=== PATIENT | male | born 1960 | race Native Hawaiian/Other Pacific Islander ===

== ENCOUNTER 2020-03-11 14:16 | Inpatient (IN) ==
--- OUTSIDE RECORDS SUMMARY | 2020-03-11 14:18 | External Medical Summary | Continuity of Care Document ---
:1960 Author Name Jono Burrows, Provider Address Unavailable Unavailable , Care Team Providers Name Role Phone Unavailable Unavailable Unavailable Raul Craven Unavailable Unavailable Unavailable Unavailable Unavailable Problems Vitamin D deficiency (268.9) (E55.9) Hypertension (401.9) (I10) Nephrolithiasis (592.0) (N20.0) Ureteral stone (592.1) (N20.1) Calculus of kidney (592.0) (N20.0) Allergies and Adverse Reactions No Known Drug Allergies (Allergy) Medications Lisinopril-hydroCHLOROthiazide 10-12.5 M G Oral Tablet; TAKE 1 TABLET DAILY at HS. , M.D. Quantity: 90 Refills: 3 Procedures Procedures not documented Immunizations Immunizations not documented Family History Brother Family history of prostate cancer (V16.42) (Z80.42) Status: Active Family history of kidney stones (V18.69) (Z84.1) Status: Act yen Mother Family history of hypertension (V17.49) (Z82.49) Status: Act yen Family history of diabetes mellitus (V18.0) (Z83.3) Status: Active Father Family history of hypertension (V17.49) (Z82.49) Status: Act yen Social History - Smoking Status Never smoked tobacco Plan of Treatment Planned Observations Planned Goals not documented Results No Known Results Results not documented
--- OUTSIDE RECORDS SUMMARY | 2020-03-11 14:19 | External Medical Summary | Continuity of Care Document ---
:1960 Author Name Jono Burrows, Provider Address Unavailable Unavailable , Care Team Providers Name Role Phone Unavailable Unavailable Unavailable Raul Craven Unavailable Unavailable Unavailable Unavailable Unavailable Problems Calculus of kidney (592.0) (N20.0) Ureteral stone (592.1) (N20.1) Nephrolithiasis (592.0) (N20.0) Hypertension (401.9) (I10) Vitamin D deficiency (268.9) (E55.9) Allergies and Adverse Reactions No Known Drug [...]
[2020-03-11] MEDS ORDERED: NITROGLYCERIN SL 0.4 MG/TAB TAB SL PRN (14:41)
[2020-03-11] MEDS ORDERED: ASPIRIN CHEW 324 MG PO STA (14:41)
--- NOTE | 2020-03-11 14:44 | Emergency Department Note ---
Impression & Plan Chest pain, HTN (hypertension), High serum chloride ED Provider Note NAME: LIT HO AGE: 59 SEX: M : 1960 ARRIVES VIA: Walk-In INFORMANT: Patient ED PROVIDER(S): Eric Sargent DO CHIEF COMPLAINT: chest pain HPI: Patient is a 59-year-old male who presents the ER for chest pain. Describes as a tightness in the middle of his chest. Has been present since Tuesday. He notes it is worse after eating but then improves within a couple seconds when he swallows something. Water does improve it with swallowing. He also notes that he has had exertional symptoms that have been worse over the past couple weeks. He also has exertional shortness of breath. Today he went up a hill and became significantly short of breath and started having chest pres sure. He did admit to some arm neck pain which is now resolved. His pain is very subtle at this point. He follows with Dr. Pride for known aneurysm. ROS: See above HPI for pertinent positives & negatives. A total of 10 systems reviewed and were otherwise negative. PAST MEDICAL HISTORY:See Below PAST SURGICAL HISTORY:See Below FAMILY HISTORY:See Below SOCIAL HISTORY:See Below HOME MEDICATIONS:See Below ALLERGIES:See Below VITALS:See Below PHYSICAL EXAMINATION: GENERAL: Sitting up in bed, alert, well appearing, well nourished, no distress, non-toxic EYE EXAM: normal conjunctiva. OROPHARYNX: no exudate, no erythema, lips, buccal mucosa, and tongue normal and mucous membranes are moist NECK: supple, no nuchal rigidity, no adenopathy, non-tender LUNGS: Clear to auscultation. Normal chest wall mechanics HEART: no murmurs, S1 normal and S2 normal ABDOMEN: abdomen soft, non-tender, normo-active bowel sounds, no masses, no rebound or guarding. BACK: Back is symmetrical on inspection and there is no deformity, no midline tenderness, no CVA tenderness. SKIN: no rashes and no bruising UPPER EXTREMITIES: upper extremities are grossly normal. Radial pulses are equal bilateral LOWER EXTREMITIES: No pitting edema. Calves are equal bilateral NEURO EXAM: Normal sensorium, cranial nerves II-XII grossly intact, normal speech, no gross weakness of arms, no gross weakness of legs. MEDICAL DECISION MAKING: Patient is a 59-year-old male who presents the ER for acute onset chest pain. 1 of which is exertional. Other appears to be GI in origin. IV was established blood work was obtained. Labs show no significant leukocytosis or anemia. INR was unremarkable. D-dimer was negative and a low risk patient. Will not pursue any further. BMP with slightly elevated chloride at 108. LFTs bilirubin was unremarkable. Troponin was detectable at 0.028. Lipase was normal. EKG showed no STEMI. Patient was given aspirin nitro. The exertional pain had resolved. He still had the pain with swallowing. He was updated bedside. Do not believe that this consistent with a dissection with his history, equl pulses and normal CXR. Will defer to hospitalist for further workup. With a detectable troponin and exertional chest pain component did discuss case with the hospitalist for further evaluation. Triage Nursing notes reviewed. Prior medical records reviewed Vital Signs: reviewed and remarkable for HTN Differential diagnosis: Differential diagnoses includes but is not limited to acute coronary syndrome, myocardial infarction, pericarditis, pulmonary embolus, aortic dissection, pneumonia, pneumothorax, musculoskeletal, shingles, esophageal. ER treatment provided: See below Diagnostics interpreted by me: ECG: Sinus rhythm rate of 66 Left axis No PVCs Normal QTC Cardiac Monitoring: An order was placed for continuous cardiac monitoring. The monitor shows a rate of 64 with sinus rhythm. Laboratory studies: As stated above and show below. Imaging studies: Portable AP upright 1 view of the chest shows no focal infiltrate or pneumothora x Consultation(s): Discussed with [facility] for further evaluation ED COURSE: Procedures: none Critical Care: None Past Med/Surg History Social History Smoking Status: Never smoker Feels Safe at Home: Yes Allergies Allergies Allergy/AdvReac Type Severity Reaction Status Date / Time acetaminophen [From Percocet] AdvReac Nausea Unverified 03/11/20 16:18 oxycodone [From Percocet] AdvReac Nausea Unverified 03/11/20 16:18 Home Meds Home Medications Medication Instructions Recorded Confirmed amlodipine 2.5 mg PO DAILY 03/11/20 03/11/20 budesonide 0.5 mg IRRIGATION DAILY 03/11/20 03/11/20 fluticasone propionate 1 spray INTRANASAL DAILY 03/11/20 03/11/20 gabapentin 300 mg PO BID 03/11/20 03/11/20 losartan 50 mg PO DAILY 03/11/20 03/11/20 modafinil 200 mg PO DAILY 03/11/20 03/11/20 Results & Data (ED) Vital Signs Vital Signs - 24 hr 03/11/20 14:25 03/11/20 14:45 03/11/20 15:08 Temperature 36.5 C Temperature Source Oral Oral Pulse Rate 62 Respiratory Rate 16 Blood Pressure 169/101 H Blood Pressure Mean 123 Pulse Oximetry 98 Oxygen Delivery Method Room Air Room Air Room Air Sepsis Recent Fever Within 48 Hours No Sepsis New/Unexplained Change in Mental Status N/A Sepsis Action Taken by Nursing No Action Required Laboratory Data Result diagrams: 03/11/20 14:58 03/11/20 14:58 Lab Results 03/11/20 03/11/20 03/11/20 Range/Units 14:58 14:58 14:58 WBC 6.43 (4.8-10.8) K/uL RBC 5.27 (4.7-6.1) M/uL Hgb 14.0 (14.0-18.0) g/dL Hct 42.8 (42-52) % MCV 81.2 (80-100) fL MCH 26.6 (25-34) pg MCHC 32.7 (32-36) g/dL RDW Std Deviation 41.0 (36.4-46.3) fL RDW Coeff of Clarence 13.8 (11.5-14.5) % Plt Count 155 (130-400) K/uL MPV 9.0 (7.4-10.4) fL Immature Gran % (Auto) 0.2 % Neut % (Auto) 57.5 % Lymph % (Auto) 31.6 % Mckean % (Auto) 9.3 % Eos % (Auto) 1.2 % Baso % (Auto) 0.2 % Neut # (Auto) 3.70 (1.4-6.5) K/uL Lymph # (Auto) 2.03 (1.2-3.4) K/uL Mckean # (Auto) 0.60 H (0.11-0.59) K/uL Eos # (Auto) 0.08 (0-0.5) K/uL Baso # (Auto) 0.01 (0-0.2) K/uL Immature Gran # (Auto) 0.01 (0.00-0.02) K/uL PT 11.4 (9.0-12.0) Seconds INR 1.1 (0.9-1.1) APTT 26.7 (21.0-31.0) Seconds PTT Ratio 1.0 D-Dimer 370 (0-500) ug/L FEU Sodium 140 (136-145) mmol/L Potassium 3.6 (3.5-5.1) mmol/L Chloride 108 H (98-107) mmol/L Carbon Dioxide 28 (21-32) mmol/L Anion Gap 4.0 (3-11) BUN 20 H (7-18) mg/dl Creatinine 1.21 (0.6-1.4) mg/dl Est Cr Clr Drug Dosing 69.8 ml/min Est GFR ( Amer) 76.6 Est GFR (Non-Af Amer) 66.1 BUN/Creatinine Ratio 16.2 (10-20) Glucose 100 H (70-99) mg/dl Calcium 9.0 (8.5-10.1) mg/dl Total Bilirubin 0.4 (0.2-1) mg/dl AST 25 (15-37) U/L ALT 40 (12-78) U/L Alkaline Phosphatase 104 (45-117) U/L Troponin I 0.028 (0-0.045) ng/ml Total Protein 7.1 (6.4-8.2) gm/dl Albumin 3.5 (3.4-5.0) gm/dl Globulin 3.6 (2.5-4.0) gm/dl Albumin/Globulin Ratio 1.0 (0.9-2) Lipase 130 (73-393) U/L Specimen Hemolysis Administered Medications Nitroglycerin (Nitroglycerin Sl 0.4 Mg/Tab Tab) 0.4 mg SL PRN PRN PRN Reason: Chest Pain Stop: 04/10/20 14:40 Last Admin: 03/11/20 14:57 Dose: 0.4 mg Documented by: [id number] Discontinued Medications Aspirin (Aspirin Chew 324 Mg) 324 mg PO NOW STA Stop: 03/11/20 14:42 Last Admin: 03/11/20 14:57 Dose: 324 mg Documented by: [id number] Discharge Plan Visit Data Chief Complaint: Chest Pain Stated Complaint: PRESSURE IN CHEST ED Provider: Eric Sargent Discharge Problem: Chest pain, HTN (hypertension), High serum chloride Forms Stand Alone Forms: [facility] Prescriptions Prescriptions: No Action modafinil 200 mg tablet 200 mg PO DAILY RF: 0 budesonide 0.5 mg/2 mL suspension for nebulization 0.5 mg irrigation DAILY RF: 0 fluticasone propionate 50 mcg/actuation spray,suspension 1 spray INTRANASAL DAILY RF: 0 gabapentin 300 mg capsule 300 mg PO BID RF: 0 losartan 50 mg tablet 50 mg PO DAILY RF: 0 amlodipine 2.5 mg tablet 2.5 mg PO DAILY RF: 0 Discharge Problem: Chest pain Qualifiers: Chest pain type: unspecified Qualified Code(s): R07.9 - Chest pain, unspecified HTN (hypertension) Qualifiers: Hypertension type: unspecified Qualified Code(s): I10 - Essential (primary) hypertension
--- NOTE | 2020-03-11 14:47 | XRay Report ---
XR chest 1V portable CLINICAL HISTORY: Chest Pain COMPARISON STUDY: Chest radiograph December 13, 2014. FINDINGS: Lung volumes are normal. Lungs are clear. There is no pneumothorax or pleural effusion. Car diac size is normal. Mediastinal contours are normal. There is no evidence for pulmonary edema. IMPRESSION: No acute cardiopulmonary findings. ACT 112: Negative or not required by law. Electronically signed by: Fortunato Marcum M.D. 03/11/2020 2:46 PM
[2020-03-11 15:10] LABS: Basophils # (auto) 0.01 K/uL (0-0.2); Basophils % (auto) 0.2 %; Eosinophils # (auto) 0.08 K/uL (0-0.5); Eosinophils % (auto) 1.2 %; Hematocrit (blood only) 42.8 % (42-52); Immature Granulocytes # (auto) 0.01 K/uL (0.00-0.02); Immature Granulocytes % (auto) 0.2 %; Lymphocytes # (auto) 2.03 K/uL (1.2-3.4); Lymphocytes % (auto) 31.6 %; Mean Corpuscular Hemoglobin 26.6 pg (25-34); Mean Corpuscular Hgb Conc 32.7 g/dL (32-36); Mean Corpuscular Volume 81.2 fL (80-100); Monocytes % (auto) 9.3 %; Neutrophils % (auto) 57.5 %; Platelet Count 155 K/uL (130-400); RDW Coefficient of Variation 13.8 % (11.5-14.5); Red Blood Count 5.27 M/uL (4.7-6.1); White Blood Count 6.43 K/uL (4.8-10.8)
[2020-03-11 15:33] LABS: D Dimer 370 ug/L FEU (0-500); INR 1.1 (0.9-1.1); Partial Thromboplastin Time 26.7 Seconds (21.0-31.0); Prothrombin Time 11.4 Seconds (9.0-12.0)
[2020-03-11 15:34] LABS: Albumin Level 3.5 gm/dl (3.4-5.0); BUN Creatinine Ratio 16.2 (10-20); Bilirubin,Total 0.4 mg/dl (0.2-1); Creatinine Clr Calc Pharmacy 69.8 ml/min; Est GFR (African American) 76.6; Est GFR (Non-African American) 66.1; Globulin 3.6 gm/dl (2.5-4.0); Potassium 3.6 mmol/L (3.5-5.1); Total Protein 7.1 gm/dl (6.4-8.2); Troponin I 0.028 ng/ml (0-0.045)
--- NOTE | 2020-03-11 16:08 | Electrocardiogram Report ---
Test Reason : Blood Pressure : / mmHG Vent. Rate : 066 BPM Atrial Rate : 066 BPM P-R Int : 152 ms QRS Dur : 088 ms QT Int : 432 ms P-R-T Axes : -17 -22 040 degrees QTc Int : 452 ms Normal sinus rhythm Moderate voltage criteria for LVH, may be normal variant Borderline ECG When compared with ECG of 13-DEC-2014 14:05, No significant change was found Confirmed by Omid Cho ([id number]) on 03/11/2020 4:08:19 PM Referred By: ER Confirmed By:Mele Cho
[2020-03-11] MEDS ORDERED: ONDANSETRON INJ 2 MG/ML 2 ML VIAL IV PRN (16:27)
--- NOTE | 2020-03-11 16:45 | History & Physical Report ---
Date of Service March 11, 2020 Assessment & Plan (1) Atypical chest pain: Presented with lower central/epigastric tightness since Tuesday last Pain seems to be more or less constant and has been annoying and is relieved to some extent by liquid Condition got worse with shortness of breath this morning Initial EKG and troponin were unremarkable We will get serial troponins and EKG We will get right-sided EKG to rule out ACS Stress echo tomorrow after ruling out for ACS Possible esophageal spasm/dysmotility Once ruled out will get a barium swallow Will give Protonix orally for now (2) HTN (hypertension): Has been on amlodipine 2.5 mg and losartan 50 mg daily daily Blood pressure remains high Will give losartan 50 mg stat and will increase the dose to 200 mg daily from tomorrow morning (3) Sleep apnea with use of continuous positive airway pressure (CPAP): Has been compliant with CPAP Can use his own CPAP in the hospital (4) Chronic back pain: Has been on gabapentin (5) Aortic aneurysm: Recent scan as an outpatient showed aneurysm to 4 cm Doubt any acute symptoms secondary to aneurysm DVT prophylaxis Subcu heparin CODE STATUS Full History of Present Illness Chief Complaint: Lower central chest/epigastric discomfort since Tuesday last Primary Care Provider: Vini Whitfield DO He is a 59-year-old obese male with significant past medical history of GRETA on CPAP at night, hypertension, history of lumbar degenerative disc disease with radiculopathy, history of aortic aneurysm and impaired glucose tolerance apparently has been complaining of lower central/epigastric discomfort which has been going on since Tuesday last. He feels tightness in the epigastric area which lasts almost all the time but gets better with the ingestion of fluid. He denies any chest pain associated with it and the symptoms does not go to his back. He has had shortness of breath with more of the symptoms ongoing of uphill this morning. He has been feeling better with the symptoms since Tuesday last and they consulted his home therapy clinician who advised him to come to the hospital. Has had some nausea but no vomiting and denies any problem with urine and her bowel h abit. No palpitation and no precordial pain. No headache and or blurred vision denies any numbness and or tingling involving any of the extremities. He was noted to have minimal swelling involving the both legs likely secondary to being on amlodipine. His EKG and initial troponin were unremarkable but given the atypical presentation he was admitted to telemetry unit for continuation of care. Allergies Allergy/AdvReac Type Severity Reaction Status Date / Time acetaminophen [From Percocet] AdvReac Nausea Unverified 03/11/20 16:18 oxycodone [From Percocet] AdvReac Nausea Unverified 03/11/20 16:18 Home Medications Home Medications Medication Instructions Recorded Confirmed Type amlodipine 2.5 mg PO DAILY 03/11/20 03/11/20 History budesonide 0.5 mg IRRIGATION DAILY 03/11/20 03/11/20 History fluticasone propionate 1 spray INTRANASAL DAILY 03/11/20 03/11/20 History gabapentin 300 mg PO BID 03/11/20 03/11/20 History losartan 50 mg PO DAILY 03/11/20 03/11/20 History modafinil 200 mg PO DAILY 03/11/20 03/11/20 History Past Med/Surg History Social History Smoking Status: Never smoker Feels Safe at Home: Yes Review of Systems Review of Systems: All systems reviewed & are unremarkable except as noted in HPI & below Physical Exam Physical Exam: Lying in bed comfortably Constitutional: well developed, well nourished, + ill appearing and + obese; no acute distress Eyes: PERRL, conjunctivae normal, anicteric sclerae ENMT: external ear and nose normal, oropharynx normal Neck: trachea midline, no thyromegaly Respiratory: no respiratory distress Auscultation: lungs clear to auscultation bilaterally Cardiovascular: Rate/Rhythm: regular rate and regular rhythm Heart Sounds: no murmur Extremities: + edema (1+ edema bilaterally) Gastrointestinal (Abdomen): Inspection/Auscultation: normal bowel sounds; abdomen not distended Percussion/Palpation: + abdomen tender (Minimally tender epigastrium) and abdomen soft Musculoskeletal: No acute arthritis in any joint Neurologic: PERRL, EOMI, accommodation nl, no face palsy, no dysarthria Psychiatric: A+Ox3, euthymic affect Lymphatic: no cervical or axillary lymphadenopathy Results & Data Results & Data ([facility]) Vital Signs (Past 12 Hours) Vital Signs Temp Pulse Resp BP Pulse Ox 03/11/20 14:25 36.5 C 62 16 169/101 H 98 Laboratory Results Short CBC 03/11/20 Range/Units 14:58 WBC 6.43 (4.8-10.8) K/uL Hgb 14.0 (14.0-18.0) g/dL Hct 42.8 (42-52) % Plt Count 155 (130-400) K/uL BMP 03/11/20 14:58 Sodium 140 Potassium 3.6 Chloride 108 H Carbon Dioxide 28 BUN 20 H Creatinine 1.21 Glucose 100 H Calcium 9.0 Cardiac Enzymes 03/11/20 Range/Units 14:58 Troponin I 0.028 (0-0.045) ng/ml Liver Function 03/11/20 Range/Units 14:58 Total Bilirubin 0.4 (0.2-1) mg/dl AST 25 (15-37) U/L ALT 40 (12-78) U/L Alkaline Phosphatase 104 (45-117) U/L Albumin 3.5 (3.4-5.0) gm/dl Medications Administered Current Inpatient Medications Nitroglycerin (Nitroglycerin Sl 0.4 Mg/Tab Tab) 0.4 mg SL PRN PRN PRN Reason: Chest Pain Stop: 04/10/20 14:40 Last Admin: 03/11/20 14:57 Dose: 0.4 mg Documented by: Ondansetron HCl (Ondansetron Inj 2 Mg/Ml 2 Ml Vial) 4 mg IV Q6H PRN PRN Reason: Nausea Stop: 04/10/20 16:26 Code Status & VTE Plan VTE Prophylaxis Plan VTE Prophylaxis will be ordered: Yes (1) HTN (hypertension) Hypertension type: unspecified Qualified Code(s): I10 - Essential (primary) hypertension
[2020-03-11] MEDS ORDERED: ALUMINUM/MAGNESIUM SUSP 30 ML UDC PO PRN (16:57)
[2020-03-11] MEDS ORDERED: LOSARTAN POTASSIUM 50 MG TAB PO ONE (18:15)
[2020-03-11] MEDS ORDERED: traMADol HCL 50 MG TABLET PO STA (20:17)
[2020-03-11] MEDS: GABAPENTIN 300 MG CAP PO SCH (22:26)
[2020-03-11] MEDS: HEPARIN SOD 5,000 UNIT/0.5 ML VIAL SQ SCH (22:26)
[2020-03-11] MEDS: PANTOprazole 40 MG TAB PO SCH (22:26)
[2020-03-12] MEDS ORDERED: KETOROLAC TROMETHAMINE 15 MG/ML VIAL IV ONE (01:47)
[2020-03-12 03:47] LABS: Basophils # (auto) 0.01 K/uL (0-0.2); Basophils % (auto) 0.1 %; Eosinophils # (auto) 0.13 K/uL (0-0.5); Eosinophils % (auto) 1.9 %; Hematocrit (blood only) 43.2 % (42-52); Hemoglobin 13.9 g/dL (14.0-18.0); Lymphocytes # (auto) 2.72 K/uL (1.2-3.4); Lymphocytes % (auto) 39.8 %; Mean Corpuscular Hemoglobin 26.3 pg (25-34); Mean Corpuscular Hgb Conc 32.2 g/dL (32-36); Mean Corpuscular Volume 81.7 fL (80-100); Mean Platelet Volume 9.1 fL (7.4-10.4); Monocytes % (auto) 10.2 %; Neutrophils # (auto) 3.28 K/uL (1.4-6.5); Platelet Count 151 K/uL (130-400); RDW Coefficient of Variation 13.9 % (11.5-14.5); RDW Standard Deviation 41.7 fL (36.4-46.3); Red Blood Count 5.29 M/uL (4.7-6.1); White Blood Count 6.84 K/uL (4.8-10.8)
[2020-03-12 04:13] LABS: BUN Creatinine Ratio 16.2 (10-20); Calcium 8.2 mg/dl (8.5-10.1); Creatinine Clr Calc Pharmacy 78.7 ml/min; Est GFR (African American) 89.9; Est GFR (Non-African American) 77.5; Potassium 3.6 mmol/L (3.5-5.1)
[2020-03-12] MEDS ORDERED: BUDESONIDE 0.5 MG/2 ML VIAL (PULMICORT) INH SCH (07:00)
[2020-03-12] MEDS: FLUTICASONE PROPIONATE NA SPR 16 GM BTL SCH (08:17)
[2020-03-12] MEDS: GABAPENTIN 300 MG CAP PO SCH ×2 (08:21→20:34)
[2020-03-12] MEDS: PANTOprazole 40 MG TAB PO SCH (08:21)
[2020-03-12] MEDS: HEPARIN SOD 5,000 UNIT/0.5 ML VIAL SQ SCH ×2 (08:21→20:35)
--- NOTE | 2020-03-12 08:40 | Hospitalist Progress Note ---
Date of Service March 12, 2020 Assessment & Plan (1) Atypical chest pain: Presented with lower central/epigastric tightness since Tuesday Pain seems to be on and off aggravated by eating, but especially with drinking fluids Report shortness of breath with walking uphill Condition got worse with shortness of breath morning of admission Contacted column precaster and was advised to report to Ed for further work-up Initial EKG and troponin were unremarkable Stress echo obtained - 03/12, unremarkable Cardiology consulted - given negative ischemic work-up recommend GI eval and poss. EGD Possible esophageal spasm/dysmotility Protonix orally for now NPO after MN EGD planned for tomorrow 03/13/20 (2) HTN (hypertension): Continue amlodipine 2.5 mg and losartan 50 mg daily daily (3) Sleep apnea with use of continuous positive airway pressure (CPAP): Has been compliant with CPAP Can use his own CPAP in the hospital (4) Chronic back pain: Has been on gabapentin (5) Aortic aneurysm: Recent scan as an outpatient showed aneurysm to 4 cm Doubt any acute symptoms secondary to aneurysm DVT prophylaxis: Subcu heparin CODE STATUS: Full Admission and Anticipated Discharge Date Admission Date: March 11, 2020 Subjective Sitting up in bed in NAD. Underwent stress test with cardiology which was unremarkable. Plan for EGD tomorrow. Currently denies any fever, chills, shortness of breath. On and off chest discomfort especially with eating and drinking. Review of Systems Review of Systems: All systems reviewed & are unremarkable except as noted in HPI & below Constitutional: no fever and no chills Respiratory: no cough and no dyspnea Cardiovascular: + chest pain (on and off w/ eating) Gastrointestinal: no nausea and no vomiting Physical Exam Physical Exam: Physical Exam: Sitting up in bed comfortably Constitutional: well developed, well nourished, + ill appearing and + obese; no acute distress Eyes: PERRL, EOMI, conjunctivae normal, anicteric sclerae ENMT: external ear and nose normal, oropharynx normal Neck: trachea midline, no thyromegaly Respiratory: no respiratory distress Auscultation: lungs clear to auscultation bilaterally Cardiovascular: Rate/Rhythm: regular rate and regular rhythm Heart Sounds: no murmur Extremities: + trace LE edema bilaterally Gastrointestinal (Abdomen): Inspection/Auscultation: normal bowel sounds; abdomen not distended Percussion/Palpation: + abdomen tender (Minimally tender epigastrium) and abdomen soft Musculoskeletal: No acute arthritis in any joint Neurologic: PERRL, EOMI, no face palsy, no dysarthria Psychiatric: A+Ox3, euthymic affect Results & Data Results & Data ([facility]) Vital Signs (Past 12 Hours) Vital Signs Temp Pulse Resp BP Pulse Ox 03/12/20 07:03 36.3 C L 58 L 18 153/93 H 97 03/12/20 03:51 36.6 C 63 16 154/93 H 98 03/12/20 00:00 36.7 C 63 17 165/93 H 97 Laboratory Results 03/12/20 03/12/20 03/12/20 Range/Units 03:05 03:05 03:05 WBC 6.84 (4.8-10.8) K/uL RBC 5.29 (4.7-6.1) M/uL Hgb 13.9 L (14.0-18.0) g/dL Hct 43.2 (42-52) % MCV 81.7 (80-100) fL MCH 26.3 (25-34) pg MCHC 32.2 (32-36) g/dL RDW Std Deviation 41.7 (36.4-46.3) fL RDW Coeff of Clarence 13.9 (11.5-14.5) % Plt Count 151 (130-400) K/uL MPV 9.1 (7.4-10.4) fL Immature Gran % (Auto) 0.0 % Neut % (Auto) 48.0 % Lymph % (Auto) 39.8 % [place] % (Auto) 10.2 % Eos % (Auto) 1.9 % Baso % (Auto) 0.1 % Neut # (Auto) 3.28 (1.4-6.5) K/uL Lymph # (Auto) 2.72 (1.2-3.4) K/uL [place] # (Auto) 0.70 H (0.11-0.59) K/uL Eos # (Auto) 0.13 (0-0.5) K/uL Baso # (Auto) 0.01 (0-0.2) K/uL Immature Gran # (Auto) 0.00 (0.00-0.02) K/uL PT (9.0-12.0) Seconds INR (0.9-1.1) APTT (21.0-31.0) Seconds PTT Ratio D-Dimer (0-500) ug/L FEU Sodium 140 (136-145) mmol/L Potassium 3.6 (3.5-5.1) mmol/L Chloride 109 H (98-107) mmol/L Carbon Dioxide 27 (21-32) mmol/L Anion Gap 4.0 (3-11) BUN 17 (7-18) mg/dl Creatinine 1.06 (0.6-1.4) mg/dl Est Cr Clr Drug Dosing 78.7 ml/min Est GFR ( Amer) 89.9 Est GFR (Non-Af Amer) 77.5 BUN/Creatinine Ratio 16.2 (10-20) Glucose 89 (70-99) mg/dl Calcium 8.2 L (8.5-10.1) mg/dl Magnesium 2.0 (1.8-2.4) mg/dl Total Bilirubin (0.2-1) mg/dl AST (15-37) U/L ALT (12-78) U/L Alkaline Phosphatase (45-117) U/L Troponin I (0-0.045) ng/ml Total Protein (6.4-8.2) gm/dl Albumin (3.4-5.0) gm/dl Globulin (2.5-4.0) gm/dl Albumin/Globulin Ratio (0.9-2) Lipase (73-393) U/L Specimen Hemolysis Hepatitis C Ab Screen Neg (Neg) 03/12/20 03/11/20 03/11/20 Range/Units 03:05 21:03 14:58 WBC (4.8-10.8) K/uL RBC (4.7-6.1) M/uL Hgb (14.0-18.0) g/dL Hct (42-52) % MCV (80-100) fL MCH (25-34) pg MCHC (32-36) g/dL RDW Std Deviation (36.4-46.3) fL RDW Coeff of Clarence (11.5-14.5) % Plt Count (130-400) K/uL MPV (7.4-10.4) fL Immature Gran % (Auto) % Neut % (Auto) % Lymph % (Auto) % [place] % (Auto) % Eos % (Auto) % Baso % (Auto) % Neut # (Auto) (1.4-6.5) K/uL Lymph # (Auto) (1.2-3.4) K/uL [place] # (Auto) (0.11-0.59) K/uL Eos # (Auto) (0-0.5) K/uL Baso # (Auto) (0-0.2) K/uL Immature Gran # (Auto) (0.00-0.02) K/uL PT (9.0-12.0) Seconds INR (0.9-1.1) APTT (21.0-31.0) Seconds PTT Ratio D-Dimer (0-500) ug/L FEU Sodium 140 (136-145) mmol/L Potassium 3.6 (3.5-5.1) mmol/L Chloride 108 H (98-107) mmol/L Carbon Dioxide 28 (21-32) mmol/L Anion Gap 4.0 (3-11) BUN 20 H (7-18) mg/dl Creatinine 1.21 (0.6-1.4) mg/dl Est Cr Clr Drug Dosing 69.8 ml/min Est GFR ( Amer) 76.6 Est GFR (Non-Af Amer) 66.1 BUN/Creatinine Ratio 16.2 (10-20) Glucose 100 H (70-99) mg/dl Calcium 9.0 (8.5-10.1) mg/dl Magnesium (1.8-2.4) mg/dl Total Bilirubin 0.4 (0.2-1) mg/dl AST 25 (15-37) U/L ALT 40 (12-78) U/L Alkaline Phosphatase 104 (45-117) U/L Troponin I 0.027 0.028 0.028 (0-0.045) ng/ml Total Protein 7.1 (6.4-8.2) gm/dl Albumin 3.5 (3.4-5.0) gm/dl Globulin 3.6 (2.5-4.0) gm/dl Albumin/Globulin Ratio 1.0 (0.9-2) Lipase 130 (73-393) U/L Specimen Hemolysis Hepatitis C Ab Screen (Neg) 03/11/20 03/11/20 Range/Units 14:58 14:58 WBC 6.43 (4.8-10.8) K/uL RBC 5.27 (4.7-6.1) M/uL Hgb 14.0 (14.0-18.0) g/dL Hct 42.8 (42-52) % MCV 81.2 (80-100) fL MCH 26.6 (25-34) pg MCHC 32.7 (32-36) g/dL RDW Std Deviation 41.0 (36.4-46.3) fL RDW Coeff of Clarence 13.8 (11.5-14.5) % Plt Count 155 (130-400) K/uL MPV 9.0 (7.4-10.4) fL Immature Gran % (Auto) 0.2 % Neut % (Auto) 57.5 % Lymph % (Auto) 31.6 % [place] % (Auto) 9.3 % Eos % (Auto) 1.2 % Baso % (Auto) 0.2 % Neut # (Auto) 3.70 (1.4-6.5) K/uL Lymph # (Auto) 2.03 (1.2-3.4) K/uL [place] # (Auto) 0.60 H (0.11-0.59) K/uL Eos # (Auto) 0.08 (0-0.5) K/uL Baso # (Auto) 0.01 (0-0.2) K/uL Immature Gran # (Auto) 0.01 (0.00-0.02) K/uL PT 11.4 (9.0-12.0) Seconds INR 1.1 (0.9-1.1) APTT 26.7 (21.0-31.0) Seconds PTT Ratio 1.0 D-Dimer 370 (0-500) ug/L FEU Sodium (136-145) mmol/L Potassium (3.5-5.1) mmol/L Chloride (98-107) mmol/L Carbon Dioxide (21-32) mmol/L Anion Gap (3-11) BUN (7-18) mg/dl Creatinine (0.6-1.4) mg/dl Est Cr Clr Drug Dosing ml/min Est GFR ( Amer) Est GFR (Non-Af Amer) BUN/Creatinine Ratio (10-20) Glucose (70-99) mg/dl Calcium (8.5-10.1) mg/dl Magnesium (1.8-2.4) mg/dl Total Bilirubin (0.2-1) mg/dl AST (15-37) U/L ALT (12-78) U/L Alkaline Phosphatase (45-117) U/L Troponin I (0-0.045) ng/ml Total Protein (6.4-8.2) gm/dl Albumin (3.4-5.0) gm/dl Globulin (2.5-4.0) gm/dl Albumin/Globulin Ratio (0.9-2) Lipase (73-393) U/L Specimen Hemolysis Hepatitis C Ab Screen (Neg) Medications Administered Current Inpatient Medications Al Hydrox/Mg Hydrox/Simethicone (Aluminum/Magnesium Susp 30 Ml Udc) 15 ml PO Q6H PRN PRN Reason: Dyspepsia Stop: 04/10/20 16:56 Amlodipine Besylate (Amlodipine Besylate 5 Mg Tab) 2.5 mg PO DAILY LORIE Stop: 04/11/20 08:59 Last Admin: 03/12/20 08:18 Dose: Not Given Documented by: Fluticasone Propionate (Fluticasone Propionate Na Spr 16 Gm Btl) 1 sprays NA DAILY LORIE Stop: 04/11/20 08:59 Last Admin: 03/12/20 08:17 Dose: Not Given Documented by: Gabapentin (Gabapentin 300 Mg Cap) 300 mg PO BID LORIE Stop: 04/10/20 20:59 Last Admin: 03/12/20 08:21 Dose: 300 mg Documented by: Heparin Sodium (Porcine) (Heparin Sod 5,000 Unit/0.5 Ml Vial) 5,000 units SQ Q12 LORIE Stop: 04/10/20 20:59 Last Admin: 03/12/20 08:21 Dose: 5,000 units Documented by: Losartan Potassium (Losartan Potassium 50 Mg Tab) 50 mg PO DAILY LORIE Stop: 04/11/20 08:59 Last Admin: 03/12/20 08:16 Dose: Not Given Documented by: Modafinil (Modafinil 100 Mg Tab) 200 mg PO DAILY LORIE Stop: 04/11/20 08:59 Last Admin: 03/12/20 08:33 Dose: 200 mg Documented by: Nitroglycerin (Nitroglycerin Sl 0.4 Mg/Tab Tab) 0.4 mg SL PRN PRN PRN Reason: Chest Pain Stop: 04/10/20 14:40 Last Admin: 03/11/20 14:57 Dose: 0.4 mg Documented by: Ondansetron HCl (Ondansetron Inj 2 Mg/Ml 2 Ml Vial) 4 mg IV Q6H PRN PRN Reason: Nausea Stop: 04/10/20 16:26 Pantoprazole Sodium (Pantoprazole 40 Mg Tab) 40 mg PO DAILY LORIE Stop: 04/10/20 16:59 Last Admin: 03/12/20 08:21 Dose: 40 mg Documented by: (1) HTN (hypertension) Hypertension type: unspecified Qualified Code(s): I10 - Essential (primary) hypertension
[2020-03-12] MEDS ORDERED: LOSARTAN POTASSIUM 50 MG TAB PO SCH (09:00)
[2020-03-12] MEDS ORDERED: amLODIPine BESYLATE 5 MG TAB PO SCH (09:00)
[2020-03-12] MEDS ORDERED: modafiniL 100 MG TAB PO SCH (09:00)
--- NOTE | 2020-03-12 09:55 | Cardiology Consultation ---
Date of Consultation March 12, 2020 Assessment & Plan (1) Chest pain: (2) Aortic aneurysm: (3) Chronic back pain: (4) Sleep apnea with use of continuous positive airway pressure (CPAP): (5) HTN (hypertension): Given the fact that his ischemic work-up has been negative to this point the patient underwent an exercise stress echocardiogram that was negative for any inducible ischemia. He did have some chest wall discomfort with exertion but states that he feels that he is out of shape and has not exercised for quite some time. Given the fact that his ischemic work-up is unremarkable I will consult our GI colleagues for likely upper endoscopy to evaluate for esophageal strictures or significant GERD. Should remain n.p.o. until seen by GI today. No other cardiac changes at this time. Okay to DC telemetry from a cardiac standpoint. History of Present Illness Reason for Consultation: Chest pain Requesting Physician: Richard Attending Physician: Hudson Ramos MD History of Present Illness It was my pleasure to see Mr. Preston in consultation today March 12, 2020. He is a very pleasant 59-year-old gentleman who follows with Dr. Pride of our cardiology practice for his history of aortic enlargement and hypertension. He presented to [facility] emergency department on 03/11/2020 at the urging of our office after he called with concerns of chest discomfort. He states that on March 09 he started noticing some midsternal discomfort. He states that it was constant but worse with drinking any liquids. He did notice a difference with solid foods. This discomfort waxed and waned for the next several days until his noticed him in discomfort and she recommend he contact our office. He was directed to the emergency department where his initial evaluation was unremarkable. He was admitted to telemetry overnight and cardiac enzymes remained unremarkable. His discomfort seemed to wax and wane throughout the night. He denies any previous similar episodes. Past medical history: 1.Moderate aortic root and ascending aortic enlargement. 2.Hypertension. 3.Low HDL dyslipidemia. 4.Familial history of heart disease. 5.History of past atypical chest discomfort. 6.Obstructive sleep apnea with hypersomnia using CPAP 7. Strong family history of esophageal strictures Allergies Allergy/AdvReac Type Severity Reaction Status Date / Time acetaminophen [From Percocet] AdvReac Nausea Unverified 03/11/20 16:18 oxycodone [From Percocet] AdvReac Nausea Unverified 03/11/20 16:18 Home Medications Home Medications Medication Instructions Recorded Confirmed Type amlodipine 2.5 mg PO DAILY 03/11/20 03/11/20 History budesonide 0.5 mg IRRIGATION DAILY 03/11/20 03/11/20 History fluticasone propionate 1 spray INTRANASAL DAILY 03/11/20 03/11/20 History gabapentin 300 mg PO BID 03/11/20 03/11/20 History losartan 50 mg PO DAILY 03/11/20 03/11/20 History modafinil 200 mg PO DAILY 03/11/20 03/11/20 History Patient History Social History Smoking Status: Never smoker Hx Alcohol Use: No Hx Substance Use: No Preferred Language: Japanese Communication Ability: Effective 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 No acute distress. HEENT: Normocephalic, atraumatic. Pupils equal, round and reactive to light and accommodation. Extraocular muscles are intact. Anicteric sclera. Moist mucous membranes. Neck: No JVD. No bruit. Cardiovascular: Regular. Positive S-4. Normal S-1 and S-2. No S-3. No murmurs or rubs. Pulmonary: Clear to auscultation B/L. No rales, rhonchi or wheezing Abdomen: Bowel sounds x 4, soft. No rebound, guarding or tenderness. No organomegaly. Extremities: No clubbing, cyanosis or edema. +2 pedal pulses bilaterally. Skin: Warm and dry. Results & Data ([facility]) Vital Signs (Past 12 Hours) Vital Signs Temp Pulse Resp BP Pulse Ox 03/12/20 07:03 36.3 C L 58 L 18 153/93 H 97 03/12/20 03:51 36.6 C 63 16 154/93 H 98 03/12/20 00:00 36.7 C 63 17 165/93 H 97 (1) Chest pain Chest pain type: unspecified Qualified Code(s): R07.9 - Chest pain, unspecified (2) HTN (hypertension) Hypertension type: unspecified Qualified Code(s): I10 - Essential (primary) hypertension
--- NOTE | 2020-03-12 10:13 | Gastrointestinal Consultation ---
Date of Consultation March 12, 2020 Assessment & Plan (1) Non-cardiac chest pain: Patient is already eaten today, so we are unable to do EGD today. Given option of outpatient EGD. However patient feels strongly that he would like to have an EGD prior to discharge. We will plan for EGD tomorrow. Please keep him n.p.o. after midnight tonight. Further recommendations to follow endoscopy. Present on Admission?: Yes Supervising Physician Co-Signing Physician Notes I have personally seen and examined the patient with LEX Herzog. Her note reflects my exam and findings. I agree with her impression and plan. Will arrange EGD for atypical chest pain. Miquel Chairez M.D. History of Present Illness Reason for Consultation: Esophageal dysmotility Requesting Physician: Dr. Stuart Muse Attending Physician: Hudson Ramos MD History of Present Illness Mr. Joshua Preston is a 59 yr old male pt of Dr. Whitfield with a hx of HTN, O SA, Lumbar DDD, aortic aneurysm and impaired glucose tolerance presented to [facility] on 03/10 for chest pain. Cardiology has consulted GI up for esophageal dysmotility. The patient tells me that he does not have typical symptoms of GERD and definitely has not had an ongoing problem with GERD. On Tuesday he began to feel a knifelike pain from inside the chest, pointing to the lower sternum when he describes this. The pain was was so severe that it woke him from sleep early on Tuesday morning. Because he was concerned that this could be a cardiac issue in light of a strong family history of heart disease he contacted cardiology who recommended presentation to the hospital. The pain has persisted, worse when he drinks any liquids. Even between swallowing, feels like he has a "ball" in that area. He denies any black or red bowel movements. No nausea or vomiting. He typically passes 2-3 formed bowel movements per day but has only had one bowel movement yesterday and none yet todays thus he is concerned about this change in bowel habits. On arrival CXR normal. See cardiology note - negative cardiac work up, thus GERD, strictures or esophageal dysmotility are considered possible causes of his pain. He has never previously undergone EGD. Allergies Allergy/AdvReac Type Severity Reaction Status Date / Time acetaminophen [From Percocet] AdvReac Nausea Unverified 03/11/20 16:18 oxycodone [From Percocet] AdvReac Nausea Unverified 03/11/20 16:18 Home Medications Home Medications Medication Instructions Recorded Confirmed Type amlodipine 2.5 mg PO DAILY 03/11/20 03/11/20 History budesonide 0.5 mg IRRIGATION DAILY 03/11/20 03/11/20 History fluticasone propionate 1 spray INTRANASAL DAILY 03/11/20 03/11/20 History gabapentin 300 mg PO BID 03/11/20 03/11/20 History losartan 50 mg PO DAILY 03/11/20 03/11/20 History modafinil 200 mg PO DAILY 03/11/20 03/11/20 History Patient History Social History Smoking Status: Never smoker Hx Alcohol Use: No Hx Substance Use: No Preferred Language: Icelandic Communication Ability: Effective 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 New chest pain with swallowing, see HPI. GI: See HPI. No abdominal pain, no nausea/vomiting or blood in stools. : Denies pain on urination Skin: No jaundice, itching or new rashes Physical Exam Constitutional: WD/WN, vitals as above cooperative, comfortable and + overweight Able to carry on a conversation. He is sitting in a chair at the bedside, reading. Eyes: PERRL, conjunctivae normal, anicteric sclerae ENMT: external ear and nose normal, oropharynx normal Neck: trachea midline, no thyromegaly Respiratory: normal respiratory effort, lungs clear to auscultation Cardiovascular: RRR, no murmur, no edema Gastrointestinal (Abdomen): normal bowel sounds, soft, nontender, no hepatosplenomegaly Skin: no rashes, warm and dry Neurologic: PERRL, EOMI, accommodation nl, no face palsy, no dysarthria Psychiatric: A+Ox3, euthymic affect Lymphatic: no cervical or axillary lymphadenopathy Results & Data ([facility]) Vital Signs (Past 12 Hours) Vital Signs Temp Pulse Resp BP Pulse Ox 03/12/20 07:03 36.3 C L 58 L 18 153/93 H 97 03/12/20 03:51 36.6 C 63 16 154/93 H 98 03/12/20 00:00 36.7 C 63 17 165/93 H 97 Laboratory Results WBC 6.8, Hb 13.9, Hct 43.2, Plts 151. INR 3.6, D Dimer (-), Na 140, 3.6, BN 17, Cr 1.06. LFTs and lipase normal. Diagnostic Findings CXR 03/11/20: normal
[2020-03-12] MEDS ORDERED: bisacodyL 5 MG TABEC PO ONE (12:16)
[2020-03-12] MEDS ORDERED: Nursing to Pharmacy Communication SCH (13:15)
--- NOTE | 2020-03-12 14:15 | Electrocardiogram Report ---
Test Reason : Blood Pressure : / mmHG Vent. Rate : 050 BPM Atrial Rate : 050 BPM P-R Int : 154 ms QRS Dur : 086 ms QT Int : 470 ms P-R-T Axes : 010 -22 066 degrees QTc Int : 428 ms Sinus bradycardia Voltage criteria for left ventricular hypertrophy Nonspecific T wave abnormality Abnormal ECG When compared with ECG of 11-MAR-2020 14:21, No significant change was found Confirmed by Omid Cho ([id number]) on 03/12/2020 2:14:43 PM Referred By: REFERRED SELF Confirmed By:Mele Cho
--- NOTE | 2020-03-12 14:21 | Electrocardiogram Report ---
Test Reason : Blood Pressure : / mmHG Vent. Rate : 054 BPM Atrial Rate : 054 BPM P-R Int : 164 ms QRS Dur : 086 ms QT Int : 460 ms P-R-T Axes : 010 -14 014 degrees QTc Int : 436 ms Sinus bradycardia Minimal voltage criteria for LVH, may be normal variant Abnormal ECG When compared with ECG of 11-MAR-2020 17:07, (unconfirmed) Nonspecific T wave abnormality now evident in Inferior leads Nonspecific T wave abnormality has replaced inverted T waves in Lateral leads Confirmed by Omid Cho ([id number]) on 03/12/2020 2:21:12 PM Referred By: REFERRED SELF Confirmed By:Mele Cho
[2020-03-12] MEDS: POLYETHYLENE (MIRALAX) 17 GM PACK PO SCH (17:27)
[2020-03-12] MEDS: amLODIPine BESYLATE 5 MG TAB PO SCH (20:33)
[2020-03-12] MEDS: LOSARTAN POTASSIUM 50 MG TAB PO SCH (20:34)
[2020-03-13 05:33] LABS: Hematocrit (blood only) 42.7 % (42-52); Hemoglobin 13.7 g/dL (14.0-18.0); Mean Corpuscular Hemoglobin 26.3 pg (25-34); Mean Corpuscular Hgb Conc 32.1 g/dL (32-36); Mean Corpuscular Volume 82.1 fL (80-100); Mean Platelet Volume 9.5 fL (7.4-10.4); Platelet Count 156 K/uL (130-400); RDW Coefficient of Variation 13.9 % (11.5-14.5); White Blood Count 6.03 K/uL (4.8-10.8)
[2020-03-13 06:03] LABS: Albumin Level 3.2 gm/dl (3.4-5.0); BUN Creatinine Ratio 15.5 (10-20); Calcium 8.3 mg/dl (8.5-10.1); Creatinine Clr Calc Pharmacy 71.9 ml/min; Est GFR (African American) 80.6; Est GFR (Non-African American) 69.5; Magnesium 2.1 mg/dl (1.8-2.4); Potassium 3.8 mmol/L (3.5-5.1)
[2020-03-13 06:06] LABS: Albumin Globulin Ratio 0.9 (0.9-2); Bilirubin,Total 0.8 mg/dl (0.2-1); Globulin 3.4 gm/dl (2.5-4.0); Phosphorus 2.2 mg/dl (2.5-4.9); Total Protein 6.6 gm/dl (6.4-8.2)
[2020-03-13] MEDS: POLYETHYLENE (MIRALAX) 17 GM PACK PO SCH (07:58)
[2020-03-13] MEDS: FLUTICASONE PROPIONATE NA SPR 16 GM BTL SCH (07:59)
--- NOTE | 2020-03-13 08:25 | Gastroenterology Progress Note ---
Date of Service March 13, 2020 Assessment & Plan (1) Non-cardiac chest pain: EGD today. Further recommendations to follow. Admission and Anticipated Discharge Date Admission Date: March 12, 2020 Supervising Physician Co-Signing Physician Notes I saw and evaluated the patient. We are planning for upper endoscopy today to evaluate the patient's history of difficulty swallowing and chest pain. We discussed the risks of the procedures to include bleeding, infection, perforation and need for follow-up exams Subjective 59 yr old male with hx of HTN, Sleep apnea on CPAP, aortic aneurysm. Admitted on 03/11 for lower retrosternal CP, described as sharp, "knife like from inside," hurts worse with swallowing liquids. Present since Tuesday morning (4 days). Cardiac testing (-) GI consult from cardiology requesting evaluation. No hx of prior GERD. Not on acid reducers. Not taking NSAIDs. No antiplatelet or anticoagulants. No prior EGDs. This morning, awake, alert, oriented, VS normal, Labs w/o anemia or electrolyte disturbances. Review of Systems Review of Systems: ROS: Gen: Denies weakness, fevers, weight loss Eyes: No eye redness, or pain, no recent vision changes Resp: No SOB, no cough Cardio: low grade lower chest discomfort at baseline "bubble," painful with swallows. GI: See HPI. No abdominal pain, no nausea/vomiting or blood in stools. : Denies pain on urination Skin: No jaundice, itching or new rashes Physical Exam Constitutional: WD/WN, vitals as above cooperative, comfortable and + overweight Eyes: PERRL, conjunctivae normal, anicteric sclerae ENMT: external ear and nose normal, oropharynx normal Neck: trachea midline, no thyromegaly Respiratory: normal respiratory effort, lungs clear to auscultation Cardiovascular: RRR, no murmur, no edema Gastrointestinal (Abdomen): normal bowel sounds, soft, nontender, no hepatosplenomegaly Skin: no rashes, warm and dry Neurologic: PERRL, EOMI, accommodation nl, no face palsy, no dysarthria Psychiatric: A+Ox3, euthymic affect Lymphatic: no cervical or axillary lymphadenopathy Results & Data ([facility]) Vital Signs (Past 12 Hours) Vital Signs Temp Pulse Pulse Resp BP Pulse Ox 03/13/20 07:33 37 C 62 20 150/90 H 93 03/13/20 03:13 36.8 C 58 L 20 151/88 H 97 03/13/20 00:50 51 L 03/12/20 23:00 36.5 C 54 L 20 151/83 H 95 Laboratory Results WBC 6, Hb 13, Hct 42, Plats 156, Na 142, K 3.8, Ch 110, CO2 30, BUN 18, Cr 1.16, glucose 91. Toponins, LFTs normal COVID (-) Diagnostic Findings CXR normal 03/11/20. Stress echo 03/12 w/o sign abnormalities. Medications Administered On pantoprazole 40mg daily here - no OP acid reducers.
[2020-03-13] MEDS ORDERED: MIDAZOLAM HCL 1 MG/ML 2ML VIAL ONE (08:31)
[2020-03-13] MEDS ORDERED: ONDANSETRON INJ 2 MG/ML 2 ML VIAL ONE (08:32)
[2020-03-13] MEDS ORDERED: LIDOCAINE HCL 2% 2 ML VIAL/AMP(20MG/ML) INFIL ONE (08:32)
[2020-03-13] MEDS ORDERED: PROPOFOL IV EMULSION 10 MG/ML 20 ML VIAL IV ONE (08:32)
--- NOTE | 2020-03-13 09:20 | Anesthesiology Consultation ---
Date of Service March 13, 2020 Assessment & Plan Chart Review Chart Review: Acceptable Risk for Surgery Consults Requested none History Surgery Operation Date: 03/13/20 16:30 Proposed Procedures p Esophagogastroduodenoscopy Dr José Kumar, Height/Weight Height: 5 ft 5 in Weight: 88.6 kg Allergies Allergy/AdvReac Type Severity Reaction Status Date / Time acetaminophen [From Percocet] AdvReac Nausea Unverified 03/11/20 16:18 oxycodone [From Percocet] AdvReac Nausea Unverified 03/11/20 16:18 Medications Home Medications Medication Instructions Recorded Confirmed Last Taken amlodipine 2.5 mg PO DAILY 03/11/20 03/11/20 Unknown budesonide 0.5 mg IRRIGATION DAILY 03/11/20 03/11/20 Unknown fluticasone propionate 1 spray INTRANASAL DAILY 03/11/20 03/11/20 Unknown gabapentin 300 mg PO BID 03/11/20 03/11/20 Unknown losartan 50 mg PO DAILY 03/11/20 03/11/20 Unknown modafinil 200 mg PO DAILY 03/11/20 03/11/20 Unknown Active Medications Generic Name Dose Route Start Last Admin Trade Name Freq PRN Reason Stop Dose Admin Amlodipine Besylate 2.5 mg 03/12/20 21:00 03/12/20 20:33 Amlodipine Besylate 5 Mg Tab PO 04/11/20 20:59 2.5 mg HS LORIE Administration Fluticasone Propionate 1 sprays 03/12/20 09:00 03/13/20 07:59 Fluticasone Propionate Na Spr 16 Gm Btl NA 04/11/20 08:59 Not Given DAILY LORIE Gabapentin 300 mg 03/11/20 21:00 03/12/20 20:34 Gabapentin 300 Mg Cap PO 04/10/20 20:59 300 mg BID LORIE Administration Heparin Sodium (Porcine) 5,000 units 03/11/20 21:00 03/12/20 20:35 Heparin Sod 5,000 Unit/0.5 Ml Vial SQ 04/10/20 20:59 Not Given Q12 LORIE Losartan Potassium 50 mg 03/12/20 21:00 03/12/20 20:34 Losartan Potassium 50 Mg Tab PO 04/11/20 20:59 50 mg HS LORIE Administration Modafinil 200 mg 03/12/20 09:00 03/12/20 08:33 Modafinil 100 Mg Tab PO 04/11/20 08:59 200 mg DAILY LORIE Administration Nitroglycerin 0.4 mg 03/11/20 14:41 03/11/20 14:57 Nitroglycerin Sl 0.4 Mg/Tab Tab SL 04/10/20 14:40 0.4 mg PRN PRN Administration Chest Pain Pantoprazole Sodium 40 mg 03/11/20 17:00 03/12/20 08:21 Pantoprazole 40 Mg Tab PO 04/10/20 16:59 40 mg DAILY LORIE Administration Polyethylene Glycol 17 gm 03/12/20 17:00 03/13/20 07:58 Polyethylene (Miralax) 17 Gm Pack PO 04/11/20 16:59 Not Given DAILY LORIE NPO Date Last Intake of Fluids: 03/12/20 Time Last Intake of Fluids: 22:00 Date Last Intake of Solids: 03/12/20 Time Last Intake of Solids: 18:00 Social History Smoking Status: Never smoker Hx Alcohol Use: No Alcohol type: wine alcohol intake frequency: holidays/special occasions only Hx Substance Use: No Physical Exam Vital Signs Last Vital Signs Temp 36.9 C 03/13/20 09:05 Pulse 56 L 03/13/20 09:05 Resp 16 03/13/20 09:05 BP 164/95 H 03/13/20 09:05 Pulse Ox 96 03/13/20 09:05 Testing Laboratory Results 03/13/20 05:01 03/13/20 05:01 PT 11.4 Seconds (9.0-12.0) 03/11/20 14:58 INR 1.1 (0.9-1.1) 03/11/20 14:58 APTT 26.7 Seconds (21.0-31.0) 03/11/20 14:58
--- NOTE | 2020-03-13 09:23 | History & Physical Bridge Note ---
Date of Service March 13, 2020 History & Physical Bridge Note I have examined the patient, reviewed the History & Physical and in the interval since the performance of the History & Physical. The patient had presented for evaluation of chest pain and a cardiac etiology has been ruled out. Upper endoscopy has been requested further evaluation. Of note the patient does note having intermittent solid food and liquid dysphagia ongoing for several weeks. He denies having fevers chills sweats or weight changes. Physical examination No obvious distress No scleral icterus Impression: Patient with chest pain and intermittent solid food dysphagia. We will plan for upper endoscopy today for further evaluation we have discussed the risks to include bleeding, infection, perforation and need for follow-up studies
--- NOTE | 2020-03-13 09:48 | Communication Note ---
Date of Service: March 13, 2020 The patient underwent upper endoscopy today. The esophagus had no specific abnormalities or evidence of esophagitis. Given the dysphagia we did perform an empiric dilation to 54 [place]. Biopsies were also taken of the esophagus. The patient has mild gastritis which is likely related to medication. Recommendations Advance diet as tolerated Continue Protonix 40 mg once daily for 3 months Patient should follow-up with gastroenterology as needed Please call with any questions or concerns we will sign off
--- NOTE | 2020-03-13 09:48 | GI REPORT ---
Patient Name: Joshua Preston Procedure Date: 03/13/2020 9:11 AM Date of : 1960 Admit Type: Inpatient Age: 59 Gender: Male Attending MD: Contreras Kumar DO Procedure: Upper GI endoscopy Providers: Contreras Kumar DO Referring MD: Hudson Ramos Md, Dominic . d.o. Dematteo Indications: Dysphagia, Unexplained chest pain Medicines: Monitored Anesthesia Care Complications: No immediate complications. Estimated blood loss: Minimal. Estimated Blood Loss: Estimated blood loss was minimal. Procedure: Pre-Anesthesia Assessment: - Prior to the procedure, a History and Physical was performed, and patient medications, allergies and sensitivities were reviewed. The patient's tolerance of previous anesthesia was reviewed. - The risks and benefits of the procedure and the sedation options and risks were discussed with the patient. All questions were answered and informed consent was obtained. - Patient identification and proposed procedure were verified prior to the procedure by the physician, the nurse and the master hearth technician. The procedure was verified in the procedure room. - Pre-procedure physical examination revealed no contraindications to sedation. - ASA Grade Assessment: III - A patient with severe systemic disease. - After reviewing the risks and benefits, the patient was deemed in satisfactory condition to undergo the procedure. - The anesthesia plan was to use monitored anesthesia care (MAC). - Immediately prior to administration of medications, the patient was re-assessed for adequacy to receive sedatives. - The heart rate, respiratory rate, oxygen saturations, blood pressure, adequacy of pulmonary ventilation, and response to care were monitored throughout the procedure. - The physical status of the patient was re-assessed after the procedure. After obtaining informed consent, the endoscope was passed under direct vision. Throughout the procedure, the patient's blood pressure, pulse, and oxygen saturations were monitored continuously. The Endoscope was introduced through the mouth, and advanced to the third part of duodenum. The upper GI endoscopy was accomplished without difficulty. The patient tolerated the procedure well. Findings: No endoscopic abnormality was evident in the esophagus to explain the patient's complaint of dysphagia. It was decided, however, to proceed with dilation of the entire esophagus. A guidewire was placed and the scope was withdrawn. Dilation was performed with a Savary dilator with mild resistance at 54 Fr. The dilation site was examined following endoscope reinsertion and showed mild mucosal disruption just below the cricopharyngeal region. Estimated blood loss was minimal. Biopsies were obtained from the proximal and distal esophagus with cold forceps for histology of suspected eosinophilic esophagitis. The pathology specimen was placed into Bottle B. Estimated blood loss was minimal. The Z-line was regular and was found 38 cm from the incisors. The cardia, gastric fundus and gastric body were normal. Diffuse mild inflammation characterized by congestion (edema), erythema and granularity was found in the gastric antrum. Biopsies were taken with a cold forceps for histology. The pathology specimen was placed into Bottle A. Estimated blood loss was minimal. The examined duodenum was normal. Impression: - No endoscopic esophageal abnormality to explain patient's dysphagia. Esophagus dilated to 54 Fr. Biopsied. - Z-line regular, 38 cm from the incisors. - Normal cardia, gastric fundus and gastric body. - Mild antral gastritis, likely medication related. Biopsied. - Normal examined duodenum. Recommendation: - Return patient to hospital sy for ongoing care. - Await pathology results. - Advance diet as tolerated today. - Try Protonix (pantoprazole) 40 mg PO daily for 3 months. - Return to GI clinic PRN. Contreras Kumar D.O. Contreras Kumar, 03/13/2020 9:47:36 AM This report has been signed electronically. Note Initiated On: 03/13/2020 9:11 AM Number of Addenda: 0 I attest to the content of the Intraoperative Record and orders documented therein, exceptions below {[id number]}
--- NOTE | 2020-03-13 09:56 | Hospitalist Progress Note ---
Date of Service March 13, 2020 Assessment & Plan (1) Atypical chest pain: Presented with lower central/epigastric tightness since Tuesday Pain seems to be on and off aggravated by eating, but especially with drinking fluids Report shortness of breath with walking uphill Condition got worse with shortness of breath morning of admission Contacted his hims coder's office and was advised to report to ED for further work-up Initial EKG and troponin were unremarkable Stress echo obtained - 03/12, unremarkable Cardiology consulted - given negative ischemic work-up recommend GI eval and poss. EGD Possible esophageal spasm/dysmotility Pt underwent EGD with GI on 03/13/20, s/p dilatation and biopsy Mild gastritis Protonix 40 mg for 3 months Advance diet as tolerated Follow up with GI as outpt Pt presents with significant sore throat after his EGD. GI contacted. Recommend CXR to r/o pneumomediastinum and magic swizzle w/ lidocaine. CXR negative for any acute process. IV pain meds - ofirmev and small dose dilaudid ordered prn. Will continue to monitor pt overnight. (2) HTN (hypertension): Continue amlodipine 2.5 mg and losartan 50 mg daily daily (3) Sleep apnea with use of continuous positive airway pressure (CPAP): Has been compliant with CPAP Can use his own CPAP in the hospital (4) Chronic back pain: Has been on gabapentin (5) Aortic aneurysm: Recent scan as an outpatient showed aneurysm to 4 cm Doubt any acute symptoms secondary to aneurysm DVT prophylaxis: Subcu heparin CODE STATUS: Full Admission and Anticipated Discharge Date Admission Date: March 12, 2020 Subjective Pt underwent EGD with GI today. S/p dilatation. Now reports significant sore throat with any swallowing. Discussed further with GI. No chest pain or shortness of breath. Review of Systems Review of Systems: All systems reviewed & are unremarkable except as noted in HPI & below Constitutional: no fever and no chills Ear, Nose, Mouth, Throat: + sore throat (after EGD procedure) Respiratory: no cough and no dyspnea Cardiovascular: no palpitations Physical Exam Physical Exam: Physical Exam: Sitting up in bed, uncomfortable d/t sore throat Constitutional: well developed, well nourished, + obese; no acute distress Eyes: PERRL, EOMI, conjunctivae normal, anicteric sclerae ENMT: external ear and nose normal, oropharynx normal Neck: trachea midline, no thyromegaly Respiratory: no respiratory distress Auscultation: lungs clear to auscultation bilaterally Cardiovascular: Rate/Rhythm: regular rate and regular rhythm Heart Sounds: no murmur Extremities: + trace LE edema bilaterally Gastrointestinal (Abdomen): Inspection/Auscultation: normal bowel sounds; abdomen not distended Percussion/Palpation: + abdomen tender (Minimally tender epigastrium) and abdomen soft Musculoskeletal: No acute arthritis in any joint Neurologic: PERRL, EOMI, no face palsy, no dysarthria Psychiatric: A+Ox3, euthymic affect Results & Data Results & Data ([facility]) Vital Signs (Past 12 Hours) Vital Signs Temp Pulse Pulse Resp BP Pulse Ox 03/13/20 09:05 36.9 C 56 L 16 164/95 H 96 03/13/20 08:30 50 L 03/13/20 07:33 37 C 62 20 150/90 H 93 03/13/20 03:13 36.8 C 58 L 20 151/88 H 97 03/13/20 00:50 51 L 03/12/20 23:00 36.5 C 54 L 20 151/83 H 95 Laboratory Results 03/13/20 03/13/20 03/12/20 Range/Units 05:01 05:01 12:55 WBC 6.03 (4.8-10.8) K/uL RBC 5.20 (4.7-6.1) M/uL Hgb 13.7 L (14.0-18.0) g/dL Hct 42.7 (42-52) % MCV 82.1 (80-100) fL MCH 26.3 (25-34) pg MCHC 32.1 (32-36) g/dL RDW Std Deviation 42.0 (36.4-46.3) fL RDW Coeff of Clarence 13.9 (11.5-14.5) % Plt Count 156 (130-400) K/uL MPV 9.5 (7.4-10.4) fL Sodium 142 (136-145) mmol/L Potassium 3.8 (3.5-5.1) mmol/L Chloride 110 H (98-107) mmol/L Carbon Dioxide 30 (21-32) mmol/L Anion Gap 2.0 L (3-11) BUN 18 (7-18) mg/dl Creatinine 1.16 (0.6-1.4) mg/dl Est Cr Clr Drug Dosing 71.9 ml/min Est GFR ( Amer) 80.6 Est GFR (Non-Af Amer) 69.5 BUN/Creatinine Ratio 15.5 (10-20) Glucose 91 (70-99) mg/dl Calcium 8.3 L (8.5-10.1) mg/dl Phosphorus 2.2 L (2.5-4.9) mg/dl Magnesium 2.1 (1.8-2.4) mg/dl Total Bilirubin 0.8 (0.2-1) mg/dl AST 22 (15-37) U/L ALT 37 (12-78) U/L Alkaline Phosphatase 93 (45-117) U/L Total Protein 6.6 (6.4-8.2) gm/dl Albumin 3.2 L (3.4-5.0) gm/dl Globulin 3.4 (2.5-4.0) gm/dl Albumin/Globulin Ratio 0.9 (0.9-2) COVID-19 Eval Order SARS-CoV-2, RNA, NAAT NEGATIVE (NEGATIVE) 03/12/20 Range/Units 12:55 WBC (4.8-10.8) K/uL RBC (4.7-6.1) M/uL Hgb (14.0-18.0) g/dL Hct (42-52) % MCV (80-100) fL MCH (25-34) pg MCHC (32-36) g/dL RDW Std Deviation (36.4-46.3) fL RDW Coeff of Clarence (11.5-14.5) % Plt Count (130-400) K/uL MPV (7.4-10.4) fL Sodium (136-145) mmol/L Potassium (3.5-5.1) mmol/L Chloride (98-107) mmol/L Carbon Dioxide (21-32) mmol/L Anion Gap (3-11) BUN (7-18) mg/dl Creatinine (0.6-1.4) mg/dl Est Cr Clr Drug Dosing ml/min Est GFR ( Amer) Est GFR (Non-Af Amer) BUN/Creatinine Ratio (10-20) Glucose (70-99) mg/dl Calcium (8.5-10.1) mg/dl Phosphorus (2.5-4.9) mg/dl Magnesium (1.8-2.4) mg/dl Total Bilirubin (0.2-1) mg/dl AST (15-37) U/L ALT (12-78) U/L Alkaline Phosphatase (45-117) U/L Total Protein (6.4-8.2) gm/dl Albumin (3.4-5.0) gm/dl Globulin (2.5-4.0) gm/dl Albumin/Globulin Ratio (0.9-2) COVID-19 Eval [facility] SARS-CoV-2, RNA, NAAT (NEGATIVE) Medications Administered Current Inpatient Medications Al Hydrox/Mg Hydrox/Simethicone (Aluminum/Magnesium Susp 30 Ml Udc) 15 ml PO Q6H PRN PRN Reason: Dyspepsia Stop: 04/10/20 16:56 Amlodipine Besylate (Amlodipine Besylate 5 Mg Tab) 2.5 mg PO HS LORIE Stop: 04/11/20 20:59 Last Admin: 03/12/20 20:33 Dose: 2.5 mg Documented by: Fluticasone Propionate (Fluticasone Propionate Na Spr 16 Gm Btl) 1 sprays NA DAILY LORIE Stop: 04/11/20 08:59 Last Admin: 03/13/20 07:59 Dose: Not Given Documented by: Gabapentin (Gabapentin 300 Mg Cap) 300 mg PO BID LORIE Stop: 04/10/20 20:59 Last Admin: 03/12/20 20:34 Dose: 300 mg Documented by: Heparin Sodium (Porcine) (Heparin Sod 5,000 Unit/0.5 Ml Vial) 5,000 units SQ Q12 LORIE Stop: 04/10/20 20:59 Last Admin: 03/12/20 20:35 Dose: Not Given Documented by: Losartan Potassium (Losartan Potassium 50 Mg Tab) 50 mg PO HS LORIE Stop: 04/11/20 20:59 Last Admin: 03/12/20 20:34 Dose: 50 mg Documented by: Modafinil (Modafinil 100 Mg Tab) 200 mg PO DAILY LORIE Stop: 04/11/20 08:59 Last Admin: 03/12/20 08:33 Dose: 200 mg Documented by: Nitroglycerin (Nitroglycerin Sl 0.4 Mg/Tab Tab) 0.4 mg SL PRN PRN PRN Reason: Chest Pain Stop: 04/10/20 14:40 Last Admin: 03/11/20 14:57 Dose: 0.4 mg Documented by: Ondansetron HCl (Ondansetron Inj 2 Mg/Ml 2 Ml Vial) 4 mg IV Q6H PRN PRN Reason: Nausea Stop: 04/10/20 16:26 Pantoprazole Sodium (Pantoprazole 40 Mg Tab) 40 mg PO DAILY [facility] Stop: 04/10/20 16:59 Last Admin: 03/12/20 08:21 Dose: 40 mg Documented by: Polyethylene Glycol (Polyethylene (Miralax) 17 Gm Pack) 17 gm PO DAILY [facility] Stop: 04/11/20 16:59 Last Admin: 03/13/20 07:58 Dose: Not Given Documented by: (1) HTN (hypertension) Hypertension type: unspecified Qualified Code(s): I10 - Essential (primary) hypertension
--- NOTE | 2020-03-13 10:41 | Anesthesiology Progress Note ---
Date of Service March 13, 2020 Anesthesia Post Procedure Vital Signs Vital Signs: Temp Pulse Pulse Pulse Resp BP Pulse Ox 03/13/20 10:32 36.9 C 56 L 18 95 03/13/20 10:18 52 L 16 129/87 96 03/13/20 10:03 54 L 16 136/84 99 03/13/20 09:48 59 L 16 126/81 97 03/13/20 09:05 36.9 C 56 L 16 164/95 H 96 03/13/20 08:30 50 L 03/13/20 07:33 37 C 62 20 150/90 H 93 03/13/20 03:13 36.8 C 58 L 20 151/88 H 97 03/13/20 00:50 51 L 03/12/20 23:00 36.5 C 54 L 20 151/83 H 95 03/12/20 20:03 36.8 C 76 18 148/67 H 96 03/12/20 16:00 36.6 C 62 56 L 18 158/91 H 95 03/12/20 15:22 36.5 C 60 20 152/93 H 96 03/12/20 11:42 36.5 C 61 18 147/90 H 95 Pain Intensity Chest: Pain Intensity: 3 Head: Pain Intensity: 2 Transfer of Care Handoff Completed per policy Notes Mental Status: alert / awake / arousable and participated in evaluation Patient Amnestic to Procedure: Yes Nausea / Vomiting: adequately controlled Pain: adequately controlled Airway Patency, RR, SpO2: stable & adequate BP & HR: stable & adequate Hydration State: stable & adequate Anesthetic Complications: no major complications apparent
[2020-03-13] MEDS: HEPARIN SOD 5,000 UNIT/0.5 ML VIAL SQ SCH ×3 (11:29→22:30)
[2020-03-13] MEDS ORDERED: traMADol HCL 50 MG TABLET PO PRN (12:45)
[2020-03-13] MEDS ORDERED: HYDROmorphone INJ 0.5 MG/0.5 ML SYR IV PRN (14:19)
[2020-03-13] MEDS: PANTOprazole 40 MG TAB PO SCH (15:06)
[2020-03-13] MEDS: GABAPENTIN 300 MG CAP PO SCH ×2 (15:06→22:25)
[2020-03-13] MEDS: ACETAMINOPHEN 1,000 MG/100 ML VIAL IV SCH ×2 (15:18→22:04)
[2020-03-13] MEDS ORDERED: Magic Swizzle w/ Sucralfate 240mL PO PRN (15:30)
--- NOTE | 2020-03-13 16:16 | XRay Report ---
XR chest 1V portable CLINICAL HISTORY: Esophageal dilatation. Pain. Evaluate for pneumomediastinum. COMPARISON STUDY: 03/11/2020 FINDINGS: The cardiac and mediastinal contours are normal. There is no evidence of focal pulmonary co nsolidation. There is no evidence of failure. No pleural effusions are visualized.[No pneumothorax or pneumomediastinum is visualized. IMPRESSION: No active disease in the chest. ACT 112: Negative or not required by law. Electronically signed by: Audi Maldonado M.D. 03/13/2020 4:14 PM
--- NOTE | 2020-03-13 16:43 | Electrocardiogram Report ---
Test Reason : Blood Pressure : / mmHG Vent. Rate : 059 BPM Atrial Rate : 059 BPM P-R Int : 166 ms QRS Dur : 086 ms QT Int : 460 ms P-R-T Axes : 011 -17 -05 degrees QTc Int : 455 ms Sinus bradycardia Incomplete right bundle branch block Minimal voltage criteria for LVH, may be normal variant Borderline ECG Confirmed by Omid Cho ([id number] on 03/13/2020 4:43:27 PM Referred By: REFERRED SELF Confirmed By:Mele Cho
[2020-03-13] MEDS: amLODIPine BESYLATE 5 MG TAB PO SCH (22:26)
[2020-03-13] MEDS: LOSARTAN POTASSIUM 50 MG TAB PO SCH (22:26)
[2020-03-14 06:12] LABS: Hematocrit (blood only) 42.7 % (42-52); Hemoglobin 13.5 g/dL (14.0-18.0); Mean Corpuscular Hgb Conc 31.6 g/dL (32-36); Mean Corpuscular Volume 82.3 fL (80-100); Mean Platelet Volume 9.3 fL (7.4-10.4); Platelet Count 157 K/uL (130-400); RDW Coefficient of Variation 13.8 % (11.5-14.5); RDW Standard Deviation 41.7 fL (36.4-46.3); Red Blood Count 5.19 M/uL (4.7-6.1); White Blood Count 5.73 K/uL (4.8-10.8)
[2020-03-14] MEDS: ACETAMINOPHEN 1,000 MG/100 ML VIAL IV SCH (06:21)
[2020-03-14 06:52] LABS: BUN Creatinine Ratio 10.9 (10-20); Calcium 8.6 mg/dl (8.5-10.1); Creatinine Clr Calc Pharmacy 78.6 ml/min; Est GFR (African American) 90.9; Est GFR (Non-African American) 78.4; Magnesium 2.1 mg/dl (1.8-2.4); Phosphorus 2.5 mg/dl (2.5-4.9); Potassium 3.7 mmol/L (3.5-5.1)
[2020-03-14] MEDS: HEPARIN SOD 5,000 UNIT/0.5 ML VIAL SQ SCH (08:57)
[2020-03-14] MEDS: PANTOprazole 40 MG TAB PO SCH (08:58)
[2020-03-14] MEDS: POLYETHYLENE (MIRALAX) 17 GM PACK PO SCH (08:58)
[2020-03-14] MEDS: GABAPENTIN 300 MG CAP PO SCH (08:58)
[2020-03-14] MEDS: FLUTICASONE PROPIONATE NA SPR 16 GM BTL SCH (09:00)
--- NOTE | 2020-03-14 09:08 | Hospitalist Progress Note ---
Date of Service March 14, 2020 Assessment & Plan (1) Atypical chest pain: Presented with lower central/epigastric tightness since Tuesday Pain seems to be on and off aggravated by eating, but especially with drinking fluids Report shortness of breath with walking uphill Condition got worse with shortness of breath morning of admission Contacted his laboratory animal care veterinarian's office and was advised to report to ED for further work-up Initial EKG and troponin were unremarkable Stress echo obtained - 03/12, unremarkable Cardiology consulted - given negative ischemic work-up recommend GI eval and poss. EGD Possible esophageal spasm/dysmotility GI consulted Pt underwent EGD with GI on 03/13/20, s/p dilatation and biopsy Mild gastritis Protonix 40 mg for 3 months Advance diet as tolerated Follow up with GI as outpt Follow up biopsy results Pt presented with significant sore throat after his EGD. GI contacted. Recommended CXR to r/o pneumomediastinum and magic swizzle w/ lidocaine. CXR negative for any acute process. IV pain meds - ofirmev and small dose dilaudid ordered prn. Pt only required ofirmev and magic swizzle. Now much improved. (2) HTN (hypertension): Continue amlodipine 2.5 mg and losartan 50 mg daily daily (3) Sleep apnea with use of continuous positive airway pressure (CPAP): Has been compliant with CPAP Can use his own CPAP in the hospital (4) Chronic back pain: Has been on gabapentin (5) Aortic aneurysm: Recent scan as an outpatient showed aneurysm to 4 cm Doubt any acute symptoms secondary to aneurysm DVT prophylaxis: Subcu heparin CODE STATUS: Full Admission and Anticipated Discharge Date Admission Date: March 12, 2020 Subjective Pt underwent EGD with GI yesterday. S/p dilatation. Reported sore throat yesterday after the procedure. now much improved. No fever, chills, chest pain or shortness of breath. No abd. pain. But says he still feels "bubble" in his epigastric area. Discussed with GI, plan for follow up as outpt. Pt in agreement. Review of Systems Review of Systems: All systems reviewed & are unremarkable except as noted in HPI & below Constitutional: no fever and no chills Ear, Nose, Mouth, Throat: + sore throat (after EGD procedure) Respiratory: no cough and no dyspnea Cardiovascular: no chest pain and no palpitations Gastrointestinal: no abdominal pain (but feels "bubble" in his epigastric area), no nausea and no vomiting Physical Exam Physical Exam: Physical Exam: Sitting up in bed, in NAD Constitutional: well developed, well nourished, + obese; no acute distress Eyes: PERRL, EOMI, conjunctivae normal, anicteric sclerae ENMT: external ear and nose normal, oropharynx normal Neck: trachea midline, no thyromegaly Respiratory: no respiratory distress Auscultation: lungs clear to auscultat ion bilaterally Cardiovascular: Rate/Rhythm: regular rate and regular rhythm Heart Sounds: no murmur Extremities: no LE edema Gastrointestinal (Abdomen): Inspection/Auscultation: normal bowel sounds; abdomen not distended Percussion/Palpation: + abdomen nontender, abdomen soft Musculoskeletal: No acute arthritis in any joint Neurologic: PERRL, EOMI, no face palsy, no dysarthria Psychiatric: A+Ox3, euthymic affect Results & Data Results & Data ([facility]) Vital Signs (Past 12 Hours) Vital Signs Temp Pulse Pulse Resp BP Pulse Ox 03/14/20 07:33 36.5 C 48 L 18 138/86 97 03/14/20 07:18 57 L 03/14/20 03:00 37.1 C 56 L 20 144/91 H 96 03/14/20 00:45 60 03/13/20 23:00 36.6 C 58 L 20 141/95 H 94 Laboratory Results 03/14/20 03/14/20 Range/Units 05:45 05:45 WBC 5.73 (4.8-10.8) K/uL RBC 5.19 (4.7-6.1) M/uL Hgb 13.5 L (14.0-18.0) g/dL Hct 42.7 (42-52) % MCV 82.3 (80-100) fL MCH 26.0 (25-34) pg MCHC 31.6 L (32-36) g/dL RDW Std Deviation 41.7 (36.4-46.3) fL RDW Coeff of Clarence 13.8 (11.5-14.5) % Plt Count 157 (130-400) K/uL MPV 9.3 (7.4-10.4) fL Sodium 142 (136-145) mmol/L Potassium 3.7 (3.5-5.1) mmol/L Chloride 109 H (98-107) mmol/L Carbon Dioxide 29 (21-32) mmol/L Anion Gap 3.0 (3-11) BUN 11 (7-18) mg/dl Creatinine 1.05 (0.6-1.4) mg/dl Est Cr Clr Drug Dosing 78.6 ml/min Est GFR ( Amer) 90.9 Est GFR (Non-Af Amer) 78.4 BUN/Creatinine Ratio 10.9 (10-20) Glucose 83 (70-99) mg/dl Calcium 8.6 (8.5-10.1) mg/dl Phosphorus 2.5 (2.5-4.9) mg/dl Magnesium 2.1 (1.8-2.4) mg/dl Medications Administered Current Inpatient Medications Al Hydrox/Mg Hydrox/Simethicone (Aluminum/Magnesium Susp 30 Ml Udc) 15 ml PO Q6H PRN PRN Reason: Dyspepsia Stop: 04/10/20 16:56 Amlodipine Besylate (Amlodipine Besylate 5 Mg Tab) 2.5 mg PO HS LORIE Stop: 04/11/20 20:59 Last Admin: 03/13/20 22:26 Dose: 2.5 mg Documented by: Al Hydrox/Mg Hydrox/Simethicone 50 ml/Diphenhydramine HCl 125 mg/Lidocaine HCl 40 ml/Sucralfate 10,000 mg/ BARCODE IDENTIFIER 1 ea 0 ml PO Q4H PRN PRN Reason: Pain Stop: 04/12/20 15:29 Last Admin: 03/14/20 08:58 Dose: 10 ml Documented by: Fluticasone Propionate (Fluticasone Propionate Na Spr 16 Gm Btl) 1 sprays NA DAILY LORIE Stop: 04/11/20 08:59 Last Admin: 03/14/20 09:00 Dose: Not Given Documented by: Gabapentin (Gabapentin 300 Mg Cap) 300 mg PO BID LORIE Stop: 04/10/20 20:59 Last Admin: 03/14/20 08:58 Dose: 300 mg Documented by: Heparin Sodium (Porcine) (Heparin Sod 5,000 Unit/0.5 Ml Vial) 5,000 units SQ Q12 LORIE Stop: 04/10/20 20:59 Last Admin: 03/14/20 08:57 Dose: Not Given Documented by: Hydromorphone HCl (Hydromorphone Inj 0.5 Mg/0.5 Ml Syr) 0.25 mg IV Q4H PRN PRN Reason: Pain Stop: 03/27/20 14:18 Acetaminophen (Ofirmev) 1,000 mg in 100 mls @ 400 mls/hr IV Q8H LORIE Stop: 03/16/20 14:59 Last Infusion: 03/14/20 06:44 Dose: Infused Documented by: Losartan Potassium (Losartan Potassium 50 Mg Tab) 50 mg PO HS LORIE Stop: 04/11/20 20:59 Last Admin: 03/13/20 22:26 Dose: 50 mg Documented by: Modafinil (Modafinil 100 Mg Tab) 200 mg PO DAILY LORIE Stop: 04/11/20 08:59 Last Admin: 03/12/20 08:33 Dose: 200 mg Documented by: Nitroglycerin (Nitroglycerin Sl 0.4 Mg/Tab Tab) 0.4 mg SL PRN PRN PRN Reason: Chest Pain Stop: 04/10/20 14:40 Last Admin: 03/11/20 14:57 Dose: 0.4 mg Documented by: Ondansetron HCl (Ondansetron Inj 2 Mg/Ml 2 Ml Vial) 4 mg IV Q6H PRN PRN Reason: Nausea Stop: 04/10/20 16:26 Pantoprazole Sodium (Pantoprazole 40 Mg Tab) 40 mg PO DAILY LORIE Stop: 04/10/20 16:59 Last Admin: 03/14/20 08:58 Dose: 40 mg Documented by: Polyethylene Glycol (Polyethylene (Miralax) 17 Gm Pack) 17 gm PO DAILY LORIE Stop: 04/11/20 16:59 Last Admin: 03/14/20 08:58 Dose: 17 gm Documented by: Tramadol HCl (Tramadol Hcl 50 Mg Tablet) 25 mg PO Q4H PRN PRN Reason: Pain Stop: 04/12/20 12:44 Last Admin: 03/13/20 12:53 Dose: 25 mg Documented by: (1) HTN (hypertension) Hypertension type: unspecified Qualified Code(s): I10 - Essential (primary) hypertension
--- NOTE | 2020-03-14 10:11 | Discharge Summary ---
Date of Service March 14, 2020 Admission HPI Per Admitting Provider He is a 59-year-old obese male with significant past medical history of GRETA on CPAP at night, hypertension, history of lumbar degenerative disc disease with radiculopathy, history of aortic aneurysm and impaired glucose tolerance apparently has been complaining of lower central/epigastric discomfort which has been going on since Tuesday last. He feels tightness in the epigastric area which lasts almost all the time but gets better with the ingestion of fluid. He denies any chest pain associated with it and the symptoms does not go to his back. He has had shortness of breath with more of the symptoms ongoing of uphill this morning. He has been feeling better with the symptoms since Tuesday last and they consulted his delivery specialist who advised him to come to the hospital. Has had some nausea but no vomiting and denies any problem with urine and her bowel habit. No palpitation and no precordial pain. No headache and or blurred vision denies any numbness and or tingling involving any of the extremities. He was noted to have minimal swelling involving the both legs likely secondary to being on amlodipine. His EKG and initial troponin were unremarkable but given the atypical presentation he was admitted to telemetry unit for continuation of care. Admission Exam Per Admitting Provider Physical Exam: Lying in bed comfortably Constitutional: well developed, well nourished, + ill appearing and + obese; no acute distress Eyes: PERRL, conjunctivae normal, anicteric sclerae ENMT: external ear and nose normal, oropharynx normal Neck: trachea midline, no thyromegaly Respiratory: no respiratory distress Auscultation: lungs clear to auscultation bilaterally Cardiovascular: Rate/Rhythm: regular rate and regular rhythm Heart Sounds: no murmur Extremities: + edema (1+ edema bilaterally) Gastrointestinal (Abdomen): Inspection/Auscultation: normal bowel sounds; abdomen not distended Percussion/Palpation: + abdomen tender (Minimally tender epigastrium) and abdomen soft Musculoskeletal: No acute arthritis in any joint Neurologic: PERRL, EOMI, accommodation nl, no face palsy, no dysarthria Psychiatric: A+Ox3, euthymic affect Lymphatic: no cervical or axillary lymphadenopathy Principal Diagnosis Atypical chest pain/epigastric pain, likely secondary to acid reflux Discharge Exam Physical Exam: Sitting up in bed, in NAD Constitutional: well developed, well nourished, + obese; no acute distress Eyes: PERRL, EOMI, conjunctivae normal, anicteric sclerae ENMT: external ear and nose normal, oropharynx normal Neck: trachea midline, no thyromegaly Respiratory: no respiratory distress Auscultation: lungs clear to auscultation bilaterally Cardiovascular: Rate/Rhythm: regular rate and regular rhythm Heart Sounds: no murmur Extremities: no LE edema Gastrointestinal (Abdomen): Inspection/Auscultation: normal bowel sounds; abdomen not distended Percussion/Palpation: abdomen nontender, abdomen soft Musculoskeletal: No acute arthritis in any joint Neurologic: PERRL, EOMI, no face palsy, no dysarthria Psychiatric: A+Ox3, euthymic affect Discharge Data Allergies Allergy/AdvReac Type Severity Reaction Status Date / Time acetaminophen [From Percocet] AdvReac Nausea Unverified 03/11/20 16:18 oxycodone [From Percocet] AdvReac Nausea Unverified 03/11/20 16:18 Consultations 03/12/20 08:37 Consult Cardiology Routine 03/12/20 09:48 Consult Gastroenterology Routine Procedures Performed Operation Date: 03/13/20 16:30 Actual Procedures p EGD Biopsy Dilatation(Not Applicable) - Contreras Kumar DO Hospital Course (1) Atypical chest pain: Presented with lower central/epigastric tightness since Tuesday Pain seems to be on and off aggravated by eating, but especially with drinking fluids Report shortness of breath with walking uphill Condition got worse with shortness of breath morning of admission Contacted his delivery specialist's office and was advised to report to ED for further work-up Initial EKG and troponin were unremarkable Stress echo obtained - 03/12, unremarkable Cardiology consulted - given negative ischemic work-up recommend GI eval and poss. EGD Possible esophageal spasm/dysmotility GI consulted Pt underwent EGD with GI on 03/13/20, s/p dilatation and biopsy Mild gastritis Protonix 40 mg for 3 months Advance diet as tolerated Follow up with GI as outpt Follow up biopsy results Pt presented with significant sore throat after his EGD. GI contacted. Recommended CXR to r/o pneumomediastinum and magic swizzle w/ lidocaine. CXR negative for any acute process. IV pain meds - ofirmev and small dose dilaudid ordered prn. Pt only required ofirmev and magic swizzle. Now much improved. (2) HTN (hypertension): Continue amlodipine 2.5 mg and losartan 50 mg daily daily (3) Sleep apnea with use of continuous positive airway pressure (CPAP): Has been compliant with CPAP Can use his own CPAP in the hospital (4) Chronic back pain: Has been on gabapentin (5) Aortic aneurysm: Recent scan as an outpatient showed aneurysm to 4 cm Doubt any acute symptoms secondary to aneurysm Total Time Total Time Spent Total Time Spent (In Minutes): 40 Total Time Includes: Examination of the Patient, Discharge Planning, Medication Reconciliation and Communication With Other Providers Discharge Plan Discharge Items Patient Disposition: Home - Self-Care Reason For Visit: ATYPICAL CHEST PAIN Discharge Diagnosis: Atypical chest pain/epigastric pain, likely secondary to acid reflux Activity: Per Instructions section Non-emergency contact: Primary Care Provider and Coding Quality Analyst Call non-emergency contact if: you have any medication questions and your symptoms worsen Follow-up/Referrals: Vini Whitfield DO [Primary Care Provider] - (Date & Time 03/18/2020 12:00 PM Provider Vini Whitfield DO Department [facility] ) Diet: Heart Healthy Liquid Consistency: Pudding thick Addtl Attending Provider Instructions: Follow up with the primary care doctor on March 18. The appointment was already scheduled for you. Take Protonix 40 mg daily for 3 months. 1 month prescription was sent to your pharmacy. Please have your primary care doctor or quality technician prescribe for following 2 months. You will also need to follow-up with gastroenterology, the appointment will be scheduled for you. For sore throat/discomfort, use Maalox/Magic swizzle, and/or Tylenol. Please try to avoid dry foods that are difficult to swallow, for next couple of days. Pending Studies at Discharge: No Stand-Alone Forms: [employer], Smoking Cessation Medications and DC Order Prescriptions: New pantoprazole 40 mg Tablet,Delayed Release (Dr/Ec) 40 mg PO DAILY 30 Days Qty: 30 RF: 0 MAG-AL 200-200 mg/5 mL Suspension 15 ml PO Q6H PRN (Reason: sore throat) Qty: 300 RF: 0 Continued modafinil 200 mg tablet 200 mg PO DAILY RF: 0 budesonide 0.5 mg/2 mL suspension for nebulization 0.5 mg irrigation DAILY RF: 0 fluticasone propionate 50 mcg/actuation spray,suspension 1 spray INTRANASAL DAILY RF: 0 gabapentin 300 mg capsule 300 mg PO BID RF: 0 losartan 50 mg tablet 50 mg PO DAILY RF: 0 amlodipine 2.5 mg tablet 2.5 mg PO DAILY RF: 0 Discharge Orders: Discharge Order (Routine); Ordered 03/14/20 Ordered By: Hudson Ramos Admission Data Admit Date/Time: 03/12/20 12:23 Attending Provider: Hudson Ramos Admit Provider: Lakesha Lazar Primary Care Provider: Vini Whitfield Other Providers: Lakesha Lazar ; Stuart Muse ; Montserrat Bryan
== END 2020-03-14 12:31 | disposition home or self-care (01) | DRG 392 ==
LOC: 2S 14:16 → ED 14:16 → SUATTDRO 16:28 → 2S 17:45 → 2N 03-12 12:24